=== PATIENT | female | born 1985 | race Two or more races ===

== ENCOUNTER 2019-01-13 10:02 | Inpatient (IN) | payer OTHER ==
[~2019-01-13] VITALS: Ht 175.3 cm; Wt 79.4 kg
[2019-01-22] MEDS ORDERED: INTESTINEX680 M1 PO (10:16)
== END 2019-01-22 11:21 | disposition home or self-care (01) | DRG 371 ==
LOC: ER 10:02 → MEDJ 01-14 11:24
PROVIDERS: ADMIT Internal Medicine
PROC: BW40ZZZ Ultrasonography of Abdomen (ICD-10-PCS; principal; 2019-01-13)
PROC: BW30ZZZ Magnetic Resonance Imaging (MRI) of Abdomen (ICD-10-PCS; 2019-01-19)
DX: A03.3 Shigellosis due to Shigella sonnei (principal); K85.80 Other acute pancreatitis without necrosis or infection; K52.89 Other specified noninfective gastroenteritis and colitis; E86.0 Dehydration
CPT/HCPCS: 74182

== ENCOUNTER 2019-04-20 14:05 | Emergency (ER) | payer OTHER ==
[~2019-04-20] VITALS: Ht 175.3 cm; Wt 74.8 kg
[~2019-04-20 14:05] MED LIST: INTESTINEX680 M1 PO
== END 2019-04-20 16:56 | disposition home or self-care (01) ==
LOC: ER 14:05
DX: S60.472A Other superficial bite of right middle finger, initial encounter (principal); W55.01XA Bitten by cat, initial encounter; Y93.89 Activity, other specified; Y92.89 Other specified places as the place of occurrence of the external cause; Y99.8 Other external cause status

== ENCOUNTER 2022-01-13 09:56 | Emergency (ER) | payer OTHER ==
[~2022-01-13] VITALS: Ht 175.3 cm; Wt 77.1 kg
== END 2022-01-13 12:45 | disposition home or self-care (01) ==
LOC: ER 09:56
DX: U07.1 COVID-19 (principal)

== ENCOUNTER 2023-01-25 19:37 | Emergency (ER) | payer OTHER ==
[~2023-01-25] VITALS: Ht 175.3 cm; Wt 81.6 kg
[~2023-01-25 19:37] MED LIST changes: +ANALPRAM HC 2.530 GM RECTAL; +DICLOFENAC SODI75 MG PO
[2023-01-25] MEDS ORDERED: PEPCID AC20 MG PO (22:38)
[2023-01-25] MEDS ORDERED: METRONIDAZOLE500 MG PO (22:38)
== END 2023-01-25 23:18 | disposition home or self-care (01) ==
LOC: ER 19:37
DX: K52.9 Noninfective gastroenteritis and colitis, unspecified (principal)

== ENCOUNTER 2023-02-17 10:24 | Emergency (ER) | payer OTHER ==
[~2023-02-17] VITALS: Ht 175.3 cm; Wt 79.4 kg
[~2023-02-17 10:24] MED LIST changes: +METRONIDAZOLE500 MG PO; +PEPCID AC20 MG PO
[2023-02-17] MEDS ORDERED: DICLOFENAC SODI75 MG PO (11:38)
[2023-02-17] MEDS ORDERED: DULCOLAX STOOL100 M1 PO (11:38)
[2023-02-17] MEDS ORDERED: ANALPRAM HC 2.5%4 GM RECTAL (11:38)
== END 2023-02-17 12:21 | disposition home or self-care (01) ==
LOC: ER 10:24
DX: K64.8 Other hemorrhoids (principal)

== ENCOUNTER 2023-07-30 05:20 | Day surgery (SDC) | payer OTHER ==
[~2023-07-30 05:20] MED LIST changes: +ANALPRAM HC 2.5%4 GM RECTAL; +DULCOLAX STOOL100 M1 PO
[2023-07-30] MEDS ORDERED: OXYC1TAB9 PO (13:19)
== END 2023-07-30 20:55 | disposition home or self-care (01) ==
LOC: CIR.AMB 05:20
PROVIDERS: ATTEND Surgery
DX: K64.8 Other hemorrhoids (principal); K64.4 Residual hemorrhoidal skin tags; K62.5 Hemorrhage of anus and rectum; K62.89 Other specified diseases of anus and rectum; K60.1 Chronic anal fissure; K64.5 Perianal venous thrombosis; Z20.822 Contact with and (suspected) exposure to COVID-19; I10 Essential (primary) hypertension